=== PATIENT | male | born 1980 | race African-American/Black ===

== ENCOUNTER 2018-06-19 08:58 | Emergency (ER) | payer OTHER ==
[~2018-06-19] VITALS: Ht 177.8 cm; Wt 136.0 kg
[~2018-06-19 08:58] MED LIST: DIFL5DRO2 OP; METH-37 PO; NAPR500T8 PO; TRAM50TA PO
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
[2018-06-19] MEDS ORDERED: POLY10DR EACHEYE (09:52)
[2018-06-19 10:04] VITALS: BP 132/89
== END 2018-06-19 10:04 | disposition home or self-care (01) ==
LOC: ER 08:58
DX: Z77.21 Contact with and (suspected) exposure to potentially hazardous body fluids (principal)
CPT/HCPCS: 86703; 86705; 86709; 86803; 87340; 99283

== ENCOUNTER 2018-08-13 06:15 | Emergency (ER) | payer OTHER ==
[~2018-08-13] VITALS: Ht 177.8 cm; Wt 131.1 kg
[~2018-08-13 06:15] MED LIST changes: +POLY10DR EACHEYE
[2018-08-13 06:20] VITALS: BP 124/75
--- NOTE | 2018-08-13 06:41 | PHYS DOC ---
Past History Past Medical History: Other Additional Past Medical Histor: uveitis Past Surgical History: No Surgical History Smoking: Non-smoker Alcohol Use: Occasionally Drug Use: None Adult General Chief Complaint Chief Complaint: EARACHE/EAR PAIN HPI HPI Patient is a 38 year old male who presents with complaint of foreign body sensation to the left ear. States he first noticed it yesterday. States that it is not painful and he has normal hearing out of the ear, but states that he feels that something may be in there. Has not noted any drainage from the ear. States that he has had history of cerumen impaction in the past and required removal and eardrops at that time. Denies any other complaints including sinus congestion, fever, or sore throat. Has not taken any medications for symptoms. States he does not use Q-tips on the ear but does use a rag to help clean is ears. Review of Systems Review of Systems Constitutional: Denies fever or chills [] Eyes: Denies change in visual acuity, redness, or eye pain [] HENT: Foreign body sensation to left ear, denies sore throat[] Respiratory: Denies cough or shortness of breath [] Cardiovascular: Denies chest pain[] GI: Denies abdominal pain, nausea, vomiting, bloody stools or diarrhea [] : Denies dysuria or hematuria [] Musculoskeletal: Denies back pain or joint pain [] Integument: Denies rash or skin lesions [] Neurologic: Denies headache, focal weakness or sensory changes [] All other systems were reviewed and found to be within normal limits, except as documented in this note. Allergies Allergies Allergies Coded Allergies Type Severity Reaction Last Updated Verified No Known Drug Allergies 09/05/13 No Physical Exam Physical Exam Constitutional: Well developed, well nourished, no acute distress, non-toxic appearance. [] HENT: Normocephalic, atraumatic, bilateral external ears normal, bilateral ear canals and TMs normal, no visualized foreign body or cerumen impaction in left ear canal, oropharynx moist, no oral exudates, nose normal. [] Eyes: PERRLA, EOMI, conjunctiva normal, no discharge. [] Neck: Normal range of motion, no tenderness, supple, no stridor. [] Cardiovascular:Heart rate regular rhythm, no murmur [] Lungs & Thorax: Bilateral breath sounds clear to auscultation [] Abdomen: Bowel sounds normal, soft, no tenderness, no masses, no pulsatile hannah s. [] Skin: Warm, dry, no erythema, no rash. [] Back: No tenderness, no CVA tenderness. [] Extremities: No tenderness, no cyanosis, no clubbing, ROM intact, no edema. [] Neurologic: Alert and oriented X 3, normal motor function, normal sensory function, no focal deficits noted. [] Current Patient Data Vital Signs Vital Signs Date Time Temp Pulse Resp B/P (MAP) Pulse Ox O2 Delivery O2 Flow Rate FiO2 08/13/18 06:20 97.9 75 18 96 Room Air Lab Results Not performed EKG EKG Not performed[] Radiology/Procedures Radiology/Procedures Not performed[] Course & Med Decision Making Course & Med Decision Making Pertinent Labs and Imaging studies reviewed. (See chart for details) Examination of the left ear is normal. I do not see any signs of swelling, irritation, or visualized foreign body. A microscopic foreign body is a possibility. At this time I recommended that the patient use [id number] eardrops to help treat the ear at this time. Recommended follow-up with primary doctor in 5-7 days if symptoms are not improving and return to emergency department for any worsening or severe symptoms. Patient was understanding and in agreement with treatment plan.[] Dragon Disclaimer Dragon Disclaimer This electronic medical record was generated, in whole or in part, using a voice recognition dictation system. Departure Departure: Impression: Primary Impression: Foreign body sensation in left ear canal Disposition: 01 HOME, SELF-CARE Condition: STABLE Referrals: PCP,NO (PCP) Patient Instructions: Ear Foreign Body, [id number] Additional Instructions: Your examination today does not reveal any obvious source for the foreign body sensation in her left ear. His recommended that you use [id number] eardrops to help rinse the ear and help resolve this sensation. Advised this does not resolve over the next 5-7 days, please follow-up with your primary doctor for reevaluation. Return immediately to the emergency department for the development of any worsening or severe symptoms such as bleeding or drainage from the ear, severe pain, fever, or any other worsening symptoms. STAN WISEMAN MD August 13, 2018 06:41
== END 2018-08-13 06:45 | disposition home or self-care (01) ==
LOC: ER 06:15
DX: H93.8X2 Other specified disorders of left ear (principal)
CPT/HCPCS: 99281

== ENCOUNTER 2019-10-29 06:00 | Emergency (ER) | payer OTHER ==
[~2019-10-29] VITALS: Ht 177.8 cm; Wt 136.0 kg
[2019-10-29 06:00] VITALS: BP 132/78
--- NOTE | 2019-10-29 06:17 | PHYS DOC ---
Past History Past Medical History: Other Additional Past Medical Histor: uveitis Past Surgical History: No Surgical History Smoking: Non-smoker Alcohol Use: Occasionally Drug Use: None General Adult EDM: Chief Complaint: EYE PROBLEMS HPI: HPI: Patient is a 39 year old male who presents for evaluation of pain and swelling to the right upper eyelid. Onset started yesterday but was much worse this morning. Patient been rubbing his eye prior to arrival. There is indeed redness and swelling to the right lateral upper eyelid. Patient is no reported vision changes, eye discharge etc. Patient is never had a similar condition in the past. Patient works as a guard. Patient is normal appearing. Review of Systems: Review of Systems: Constitutional: Denies fever or chills Eyes: Denies change in visual acuity HENT: Denies nasal congestion or sore throat Respiratory: Denies cough or shortness of breath Cardiovascular: Denies chest pain or edema GI: Denies abdominal pain, nausea, vomiting, bloody stools or diarrhea : Denies dysuria Musculoskeletal: Denies back pain or joint pain Integument: Denies rash Neurologic: Denies headache, focal weakness or sensory changes Endocrine: Denies polyuria or polydipsia Lymphatic: Denies swollen glands Psychiatric: Denies depression or anxiety Heart Score: Risk Factors: Risk Factors: DM, Current or recent (<one month) smoker, HTN, HLP, family history of CAD, obesity. Risk Scores: Score 0 - 3: 2.5% MACE over next 6 weeks - Discharge Home Score 4 - 6: 20.3% MACE over next 6 weeks - Admit for Clinical Observation Score 7 - 10: 72.7% MACE over next 6 weeks - Early Invasive Strategies Allergies: Allergies: Allergies Coded Allergies Type Severity Reaction Last Updated Verified No Known Drug Allergies 09/05/13 No Physical Exam: PE: Constitutional: Well developed, well nourished, no acute distress, non-toxic appearance. [] HENT: Normocephalic, atraumatic, bilateral external ears normal, oropharynx moist, no oral exudates, nose normal. [] Eyes: PERRL, EOMI, conjunctiva normal, no discharge, mild redness right upper eyelid laterally, findings consistent with a stye. [] Neck: Normal range of motion, no tenderness, supple. [] Cardiovascular:Heart rate regular rhythm, no murmur [] Lungs & Thorax: Bilateral breath sounds clear to auscultation [] Abdomen: Bowel sounds normal, soft, no tenderness, no masses, no pulsatile masses. [] Skin: Warm, dry, no erythema, no rash. [] Back: No tenderness. [] Extremities: No tenderness, no cyanosis, ROM intact, no edema. [] Neurologic: Alert and oriented X 3, normal motor function, normal sensory function, no focal deficits noted. [] Psychologic: Affect normal, judgement normal, mood normal. [] EKG: EKG: [] Radiology/Procedures: Radiology/Procedures: [] Course & Med Decision Making: Course & Med Decision Making Pertinent Labs and Imaging studies reviewed. (See chart for details) [] Dragon Disclaimer: [employer] Disclaimer: This electronic medical record was generated, in whole or in part, using a voice recognition dictation system. Departure Departure: Impression: Primary Impression: Stye external Qualified Codes: H00.011 - Hordeolum externum right upper eyelid Disposition: HOME/RESIDENCE PRIOR TO ADM Condition: STABLE Referrals: PCP,UNKNOWN (PCP) Additional Instructions: It appears that you have a right upper eyelid stye. Use warm compresses several times a day for 5 to 10 minutes at a time. This can be a hot washcloth. Do not squeeze the wound. No antibiotics required. It should spontaneously resolve in about 7 to 10 days. If it become significantly worse see your doctor for reassessment Justification of Admission: Justification of Admission: Justification of Admission Dx: N/A SHEIRN MILLS DO Oct 29, 2019 06:17
== END 2019-10-29 06:35 | disposition home or self-care (01) ==
LOC: ER 06:00
DX: H00.011 Hordeolum externum right upper eyelid (principal)
CPT/HCPCS: 99281